=== PATIENT | female | born 1950 | race Caucasian/White ===

== ENCOUNTER 2016-08-13 11:38 | Outpatient (CLI) | payer OTHER ==
--- NOTE | 2016-08-13 12:34 | DIAGNOSTIC IMAGING REPORT ---
PROCEDURE: US KIDNEY/RENAL COMPLETE INDICATION: HYPERTHYROIDISM TECHNIQUE: Muhammad scale and color Doppler sonographic imaging of the kidneys and urinary bladder was obtained. Intrarenal resistive indices were calculated when appropriate. COMPARISON: None. FINDINGS: The right kidney measures 11.3 x 5.6 x 4.5 cm Normal cortical thickness and echogenicity. No hydronephrosis, cyst, solid mass, or shadowing calculus. Normal color Doppler blood flow throughout the kidney. Resistive indices in the intrarenal parenchymal arteries range from 0.7-0.73 and are slightly increased. The left kidney measures 11.6 x 4.6 x 5.1 cm. Normal cortical thickness and echogenicity. No hydronephrosis, cyst, solid mass, or shadowing calculus. Normal color Doppler blood flow throughout the kidney. Resistive indices in the intrarenal parenchymal arteries range from 0.66-0.64. The filled urinary bladder has a volume of 611 ml and a post void residual of 49 ml The urinary bladder wall is uniform in thickness without suspicious thickening or irregularity. No bladder debris, calcification or mass. Bilateral ureteral jets were visible indicating ureteral patency. IMPRESSION: 1. Normal renal morphology. 2. Normal urinary bladder morphology. 3. Slightly elevated resistive indices.
--- NOTE | 2016-08-13 12:37 | DIAGNOSTIC IMAGING REPORT ---
PROCEDURE: DEXA BONE DENSITY STUDY CLINICAL INDICATION: HYPERTHYROIDISM COMPARISON: None. FINDINGS: LUMBAR SPINE: Bone mineral density 0.787 g/cm2, T score -2.4 osteopenia LEFT HIP: Bone mineral density 0.645 g/cm2, T score -2.4 osteopenia LEFT FEMORAL NECK: Bone mineral density 0.517 g/cm2, T score -3.0 osteoporosis FRACTURE RISK CALCULATION ( when applicable): 10-year fracture risk of a major osteoporotic fracture and of a hip fracture not reported because some T-score at or below -2.5 (T score greater or equal to -1.0 to: NORMAL) (T score from -1.1 to -2.4: OSTEOPENIA) (T score ess than or equal to -2.5: OSTEOPOROSIS) IMPRESSION: 1. Femoral neck osteoporosis, hip and lumbar spine osteopenia
== END 2016-08-13 23:00 ==
LOC: US SRH 11:38 → XR SRH 13:15 → US SRH 23:00
DX: E21.0 Primary hyperparathyroidism (principal); M81.8 Other osteoporosis without current pathological fracture; M85.88 Other specified disorders of bone density and structure, other site